=== PATIENT | male | born 1960 | race Caucasian/White ===

== ENCOUNTER 2024-03-31 11:59 | Outpatient (AMB) | payer MEDICARE, MEDICAID, SELFPAY ==
--- NOTE | 2024-03-31 12:00 | MHC.OFFWIV ---
Intake Vital Signs 03/31/24 12:05 Height 5 ft 9 in Weight 169 lb BMI 25.0 BP 135/74 Blood Pressure Location Lt brachial Position Sitting Respiration 13 Pulse 55 Pulse Source Pulse Oximeter Pulse Oximetry (%) 95 Oxygen Delivery Method Room Air Intake Visit Reasons: EST/ BURNING IN LEGS AND HIP/WAIST AREA Intake Note: Patient complaining of burning sensation around waist, hip and legs x 2 months Allergies No Known Allergies Allergy (Verified 03/31/24 12:23) Medication List - Last Reconciled 03/31/24 by Linnette Schuler, [facility] aripiprazole 10 mg PO DAILY fluticasone propionate 50 mcg/actuation sprays intranasal metoprolol tartrate 25 mg PO DAILY omeprazole 20 mg PO DAILY quetiapine 50 mg PO BEDTIME simvastatin 20 mg PO BEDTIME tizanidine 2 mg PO TID Do you need a note to return to daycare/school/sports/work: No HPI HPI Comments History of Present Illness Details 63 y/o M here today at the walk-in and I am not really sure why. He was a very vague historian. He presents with an odd affect, laughing. Kind of staring off. Hard to keep on track. Answered phone call to talk during the visit. Be that as it may he reports that he has burning in his stomach wasting groin it can be so bad he can not walk at times. This started 2 months ago. He reports that he was already seen by his primary care provider for this. Reports that he had labs done. But denies any further treatment. However upon further questioning he tells me that he was referred for physical therapy and also given tizanidine to help. He is unable to tell me if this is or is not helping him. It was unclear whether or not he has a has not started physical therapy. As I am trying to go through the review of systems he is unable to answer the questions appropriately. I asked him what he thought was going on: think it has something to do with pelvis and groin something that moves around and they knock you out . After several guesses, I said hernia and he said yes that is what he is talking about. He then tells me that he went to [facility] for evaluation and treatment of this. PCP Dr Chakraborty, next appt states does not have one Exam Awake alert oriented, no acute distress Odd affect, vague historian Abdomen is soft and tender no peritoneal signs or guarding No spinal tenderness, no CVAT bilat, no rash on his trunk moves all extremities x4 Plan I did tell him today that this is something he needs to follow up with his primary care. As this is a walk-in clinic and the purpose of this clinic is for a straight forward complaint. Given the above which is a very vague and confusing history I am unable to help. He is stable. There was nothing obvious. I do not think his presentation today is an acute change from his baseline. Has GERD, already on PPI. The medical sociologist has placed a call to his primary care provider. Unfortunately they are closed for lunch with the next hour. Was not able to breakthrough to speak with an available provider. The patient was informed that he needs to contact his primary care provider himself to schedule a follow up for this issue. I will fax a copy of this note to his primary care provider. This note is constructed using voice recognition software. While every effort has been made to ensure accuracy in waiter/waitress take out, still errors may have been included Sometimes, these errors may affect the content or meaning of the given sentence . Total time spent caring for the patient today was 30 minutes. This includes time spent before the visit reviewing the chart, time spent during the visit, and time spent after the visit on documentation Physical Exam Vital Signs: Last Vital Signs Pulse 55 03/31/24 12:05 Resp 13 03/31/24 12:05 BP 135/74 03/31/24 12:05 Pulse Ox 95 03/31/24 12:05 Oxygen Delivery Method Room Air 03/31/24 12:05 BMI result Body Mass Index 25.0 Assessment & Plan Assessment & Plan (1) Suprapubic abdominal burning sensation: Code(s): R20.8 - Other disturbances of skin sensation (2) GERD (gastroesophageal reflux disease): Code(s): K21.9 - Gastro-esophageal reflux disease without esophagitis Plan: . Plan . Coding Level of Care Code Est Pt Level 4 (74390) Diagnoses Suprapubic abdominal burning sensation R20.8 GERD (gastroesophageal reflux disease) K21.9
[2024-03-31 12:05] VITALS: BP 135/74; PULSE 55; RESP 13; O2SAT 95; BMI 25.0
== END 2024-03-31 12:43 | disposition home or self-care (01) ==
LOC: HO.HMCWIW 12:00
PROVIDERS: PCP Nurse Practitioner; Visit Provider Nurse Practitioner Family
DX: R20.8 Other disturbances of skin sensation (principal); K21.9 Gastro-esophageal reflux disease without esophagitis

== ENCOUNTER → 2024-03-31 11:59 | Outpatient (BNVA) | payer MEDICARE, MEDICAID, SELFPAY | PROVIDERS: PCP Nurse Practitioner; Visit Provider Nurse Practitioner Family | DX: R20.8 Other disturbances of skin sensation (principal); K21.9 Gastro-esophageal reflux disease without esophagitis | CPT/HCPCS: 99212 ==